=== PATIENT | female | born 1980 | race Caucasian/White ===

== ENCOUNTER 2019-02-15 13:18 | Emergency (ER) | payer OTHER ==
--- NOTE | 2019-02-15 13:53 | ED ---
Lower Extremity - HPI Summary HPI Summary: A 38 y/o F presents to ED with c/o L knee pain onset this date at approx 1215. She says she lifted her leg over a bench while at a picnic and it twisted. At onset of pain, she describes it as "pulling." She was seen two weeks ago at [facility] for LLE pain and suspected ACL tear, but she hasn't had any follow-up since. She is wear a leg brace at bedsides, but does not feel it fits correctly. She's been taking alternating Ibuprofen and Acetaminophen, and icing her knee which has helped with the pain. She is in-patient at [facility]. - History of Current Complaint Chief Complaint: EDExtremityLower Stated Complaint: LEFT KNEE INJURY PER PT Hx Obtained From: Patient Mechanism Of Injury: Twisted Onset of Pain: Immediate, Post Accident, Prior to Arrival Onset/Duration: Still Present - approx 1215 Severity Initially: Moderate Severity Currently: Moderate Pain Intensity: 5 Pain Scale Used: 0-10 Numeric Location: Is Discrete @ - L knee Associated Signs And Symptoms: Positive: Negative Alleviating Factor(s): Ice, OTC Meds - Allergies/Home Medications Allergies/Adverse Reactions: Allergies Allergy/AdvReac Type Severity Reaction Status Date / Time No Known Allergies Allergy Verified 02/15/19 13:23 PMH/Surg Hx/FS Hx/Imm Hx Previously Healthy: Yes Sensory History: Denies: Hx Legally Blind, Hx Deafness Opthamlomology History: Denies: Hx Legally Blind EENT History: Denies: Hx Deafness Neurological History: Denies: Hx Dementia Infectious Disease History: No Infectious Disease History: Denies: Traveled Outside the [place] in Last 30 Days - Family History Known Family History: Positive: Cardiac Disease, Diabetes, Other - CA - Social History Occupation: Unemployed Lives: Alone Review of Systems Negative: Fever Negative: Cough Positive: Arthralgia - pos: L knee pain All Other Systems Reviewed And Are Negative: Yes Physical Exam - Summary Physical Exam Summary: Appearance: The patient is well-nourished in no acute distress and in no acute pain. Skin: The skin is warm and dry and skin color reflects adequate perfusion. HEENT: The head is normocephalic and atraumatic. The pupils are equal and reactive. The conjunctivae are clear and without drainage. Nares are patent and without drainage. Mouth reveals moist mucous membranes and the throat is without erythema and exudate. The external ears are intact. The ear canals are patent and without drainage. The tympanic membranes are intact. Neck: the neck is supple with full range of motion and non-tender. There are no carotid bruits. There is no neck vein distension. Respiratory: Chest is non-tender. Lungs are clear to auscultation and breath sounds are symmetrical and equal. Cardiovascular: Heart is regular rate and rhythm. There is no murmur or rub auscultated. There is no peripheral edema and pulses are symmetrical and equal. Abdomen: The abdomen is soft and non-tender. There are normal bowel sounds heard in all four quadrants and there is no organomegaly palpated. Musculoskeletal: There is no back tenderness noted. There is good capillary refill. There is no peripheral edema or calf tenderness elicited. Extremities are non-tender with full range of motion EXCEPT there is tenderness with flexion and extension of L knee with external rotation of her foot. Neurological: Patient is alert and oriented to person, place and time. The patient has symmetrical motor strength in all four extremities. Cranial nerves are grossly intact. Deep tendon reflexes are symmetrical and equal in all four extremities. Psychiatric: The patient has an appropriate affect and does not exhibit any anxiety or depression. Triage Information Reviewed: Yes Vital Signs On Initial Exam: Initial Vitals Temp Pulse Resp BP Pulse Ox 97.8 F 102 17 118/69 98 02/15/19 13:21 02/15/19 13:21 02/15/19 13:21 02/15/19 13:21 02/15/19 13:21 Vital Signs Reviewed: Yes Diagnostics - Vital Signs Vital Signs Temp Pulse Resp BP Pulse Ox 02/15/19 13:21 97.8 F 102 17 118/69 98 - Laboratory Lab Statement: Any lab studies that have been ordered have been reviewed, and results considered in the medical decision making process. Lower Extremity Course/Dx - Course Course Of Treatment: On my exam today I suspect that her lateral meniscus is inflamed. I recommended continued conservative treatment and follow-up with Ortho for possible MRI if she continues to have problems. She felt that the knee immobilizer she got at [place] doesn't fit right and we gave her one here that she feels fits much better. - Diagnoses Provider Diagnoses: Knee injury Discharge - Sign-Out/Discharge Documenting (check all that apply): Patient Departure - D/C Patient Received Moderate/Deep Sedation with Procedure: No - Discharge Plan Condition: Stable Disposition: HOME - Billing Disposition and Condition Condition: STABLE Disposition: Home - Attestation Statements Document Initiated by Josephibe: Yes Documenting Scribe: Tammie De Souza Provider For Whom Josephibe is Documenting (Include Credential): Dr. Chago Blair MD Scribe Attestation: Tammie Negro scribed for Dr. Chago Blair MD on 02/15/19 at 1412. Scribe Documentation Reviewed: Yes Provider Attestation: The documentation as recorded by the Tammie bowling accurately reflects the service I personally performed and the decisions made by me, Dr. Chago Blair MD Status of Scribe Document: Viewed
[2019-02-15 14:24] VITALS: BP 120/71
== END 2019-02-15 14:15 | disposition home or self-care (01) ==
LOC: ED 13:18
DX: S89.92XA Unspecified injury of left lower leg, initial encounter (principal); X50.1XXA Overexertion from prolonged static or awkward postures, initial encounter; Y92.9 Unspecified place or not applicable
CPT/HCPCS: 99282